=== PATIENT | female | born 1980 | race Caucasian/White ===

== ENCOUNTER → 2021-04-22 04:43 | Outpatient (CLI) | payer BC, SELFPAY ==
[2021-04-22 11:28] LABS: Influenza A QL RT-PCR Negative (Negative); Influenza B QL RT-PCR Negative (Negative); SARS-CoV-2 RNA PCR Negative
== END ==
PROVIDERS: PCP Internal Medicine; Visit Provider Internal Medicine
DX: Z20.822 Contact with and (suspected) exposure to COVID-19 (principal); Z20.828 Contact with and (suspected) exposure to other viral communicable diseases
CPT/HCPCS: 87502; C9803; U0003; U0005